=== PATIENT | male | born 1970 | race Two or more races ===

== ENCOUNTER 2017-09-07 23:55 | Emergency (ER) | payer SELFPAY ==
[~2017-09-07] VITALS: Ht 185.4 cm; Wt 88.5 kg
[2017-09-08 00:08] VITALS: BP 131/72
== END 2017-09-08 06:57 | disposition left against medical advice (07) ==
LOC: EDBD 23:55 → ER 23:55
DX: F41.9 Anxiety disorder, unspecified (principal); E11.9 Type 2 diabetes mellitus without complications; I10 Essential (primary) hypertension; F31.9 Bipolar disorder, unspecified; Z53.29 Procedure and treatment not carried out because of patient's decision for other reasons

== ENCOUNTER 2017-09-17 17:45 | Emergency (ER) | payer OTHER ==
[~2017-09-17] VITALS: Ht 185.4 cm; Wt 90.7 kg
[2017-09-17 18:07] VITALS: BP 120/78
[2017-09-17 18:34] LABS: Basophils # (auto) 0.1 uL; Basophils % (auto) 0.5 % (0.0-2.0); Eosinophils # (auto) 0.2 uL; Neutrophils % (auto) 63.8 % (37.0-80.0); Red Blood Cells 5.94 10^6/uL (4.5-5.90); White Blood Cell 11.2 10^3/uL (4.4-10.8)
[2017-09-17 18:35] LABS: Eosinophils % (auto) 1.7 % (0.0-7.0); Hematocrit 54.4 % (41.0-53.0); Hemoglobin 18.4 g/dL (13.5-17.5); Lymphocytes # (auto) 2.1 uL; Lymphocytes % (auto) 18.5 % (10.0-50.0); Mean Corpuscular Hgb Conc. 33.8 g/dL (32.0-36.0); Mean Corpuscular Volume 91.6 fL (80.0-100.0); Monocytes # (auto) 1.7 uL; Monocytes % (auto) 15.5 % (0.0-12.0); Neutrophils # (auto) 7.1 uL; Platelet Count (auto) 292 10^3/uL (140-450); Red Cell Distribution Width 13.5 % (11.8-14.3)
[2017-09-17 18:53] LABS: Albumin 3.6 g/dL (3.4-5.0); BUN/Creatinine Ratio 17.9; Bilirubin, Total 0.5 mg/dL (0.2-1.0); Calcium 7.9 mg/dL (8.5-10.1); Potassium 3.9 mmol/L (3.5-5.1); Total Protein 8.5 g/dL (6.4-8.2)
== END 2017-09-17 20:29 | disposition left against medical advice (07) ==
LOC: ER 17:51
DX: R10.9 Unspecified abdominal pain (principal); Z53.21 Procedure and treatment not carried out due to patient leaving prior to being seen by health care provider
CPT/HCPCS: 36415; 80053; 85025

== ENCOUNTER 2017-09-18 07:10 | Emergency (ER) | payer OTHER ==
[~2017-09-18] VITALS: Ht 185.4 cm; Wt 90.7 kg
[2017-09-18 07:39] VITALS: BP 129/88
[2017-09-18] MEDS ORDERED: DICYCLOMINE HCL 10 MG CAP PO ONE (07:45)
[2017-09-18] MEDS ORDERED: LOPERAMIDE HCL 2 MG CAP PO ONE (07:45)
[2017-09-19] MEDS ORDERED: ELVITAB2 OR (16:41)
== END 2017-09-18 08:08 | disposition home or self-care (01) ==
LOC: ER 07:10
DX: R19.7 Diarrhea, unspecified (principal); E11.9 Type 2 diabetes mellitus without complications; I10 Essential (primary) hypertension
CPT/HCPCS: 99283; J0500

== ENCOUNTER 2017-09-19 12:53 | Inpatient (IN) | payer OTHER ==
[~2017-09-19] VITALS: Ht 185.4 cm; Wt 95.4 kg
[2017-09-19] MEDS ORDERED: SODIUM CHLORIDE 0.9% 1,000 ML IV ONE (13:00)
[2017-09-19 13:28] LABS: Basophils # (auto) 0.1 uL; Eosinophils # (auto) 0.1 uL; Lymphocytes # (auto) 2.1 uL; Mean Corpuscular Hemoglobin 30.9 pg (28.0-32.0); Monocytes # (auto) 0.9 uL; Neutrophils # (auto) 5.2 uL
[2017-09-19 13:31] LABS: Basophils % (auto) 0.7 % (0.0-2.0); Eosinophils % (auto) 1.2 % (0.0-7.0); Hematocrit 53.6 % (41.0-53.0); Hemoglobin 18.2 g/dL (13.5-17.5); Lymphocytes % (auto) 24.6 % (10.0-50.0); Mean Corpuscular Hgb Conc. 34.1 g/dL (32.0-36.0); Mean Corpuscular Volume 90.6 fL (80.0-100.0); Monocytes % (auto) 11.1 % (0.0-12.0); Neutrophils % (auto) 62.4 % (37.0-80.0); Nucleated Red Blood Cells % 0.2 %; Platelet Count (auto) 292 10^3/uL (140-450); Red Blood Cells 5.91 10^6/uL (4.5-5.90); Red Cell Distribution Width 13.1 % (11.8-14.3); White Blood Cell 8.4 10^3/uL (4.4-10.8)
[2017-09-19 14:26] LABS: Anion Gap 7 (5-15); Blood Urea Nitrogen 11 mg/dL (7-18); Carbon Dioxide 23 mmol/L (21-32); Chloride 105 mmol/L (98-107); Glucose 136 mg/dL (74-106); Potassium 3.5 mmol/L (3.5-5.1); Sodium 135 mmol/L (136-145)
[2017-09-19 14:27] LABS: Alanine Aminotransferase 24 U/L (16-61); Albumin 3.1 g/dL (3.4-5.0); Alkaline Phosphatase 104 U/L (45-117); Aspartate Aminotransferase 10 U/L (15-37); BUN/Creatinine Ratio 12.8; Bilirubin, Total 0.3 mg/dL (0.2-1.0); Calcium 7.7 mg/dL (8.5-10.1); GFR African American 123 mL/min; GFR Non-African American 101 mL/min; Total Protein 7.6 g/dL (6.4-8.2)
[2017-09-19 14:28] LABS: Magnesium 2.5 mg/dL (1.6-2.6)
[2017-09-19] MEDS ORDERED: NITROGLYCERIN 0.4 MG SL TAB SL PRN (15:00)
[2017-09-19] MEDS ORDERED: DEXTROSE (50%) 50ML SYRG IV PRN (15:00)
[2017-09-19] MEDS ORDERED: MORPHINE SULF INJ 2 MG/ML SYRINGE 1ML IV PRN (15:00)
[2017-09-19] MEDS ORDERED: ACETAMINOPHEN 500 MG TAB PO PRN (15:00)
[2017-09-19] MEDS ORDERED: PROMETHAZINE HCL 25 MG/ML 1ML IV PRN (15:00)
[2017-09-19] MEDS ORDERED: HYDROcodone-ACET 5/325MG TAB PO PRN (15:00)
[2017-09-19 15:18] LABS: Amylase 37 U/L (25-115); Lipase 114 U/L (73-393)
[2017-09-19] MEDS: SODIUM CHLORIDE 0.9% 1,000 ML IV SCH (15:26)
[2017-09-19] MEDS: metroNIDAZOLE 500 MG TAB PO SCH ×2 (15:26→22:25)
[2017-09-19] MEDS ORDERED: ELVITAB2 OR (16:41)
[2017-09-19 17:00] VITALS: BP 128/78
[2017-09-19] MEDS: InsuLIN REG 1unit/0.01ml Soln (100units/ml) SC SCH ×2 (17:00→22:34)
[2017-09-19] MEDS: ACCU-CHEK COMFORT CURVE STRIP VI SCH ×2 (17:06→22:34)
[2017-09-19] MEDS: LORazepam 0.5 MG TAB PO PRN (21:07)
[2017-09-19 21:30] VITALS: BP 111/79
[2017-09-19] MEDS: MORPHINE SULFATE 4 MG/ML SYR/VIAL IV PRN (22:25)
[2017-09-19] MEDS: TEMAZEPAM 15 MG CAP PO PRN (22:25)
[2017-09-20] MEDS: SODIUM CHLORIDE 0.9% 1,000 ML IV SCH ×3 (00:54→20:57)
[2017-09-20] MEDS: LORazepam 0.5 MG TAB PO PRN ×2 (04:30→20:21)
[2017-09-20] MEDS: metroNIDAZOLE 500 MG TAB PO SCH ×2 (04:30→14:11)
[2017-09-20 05:08] VITALS: BP 105/68
[2017-09-20] MEDS: MORPHINE SULFATE 4 MG/ML SYR/VIAL IV PRN ×3 (05:20→20:21)
[2017-09-20 05:37] LABS: Basophils # (auto) 0.1 uL; Basophils % (auto) 0.7 % (0.0-2.0); Eosinophils # (auto) 0.2 uL; Eosinophils % (auto) 2.4 % (0.0-7.0); Hematocrit 50.2 % (41.0-53.0); Hemoglobin 16.8 g/dL (13.5-17.5); Lymphocytes # (auto) 2.7 uL; Lymphocytes % (auto) 36.8 % (10.0-50.0); Mean Corpuscular Hemoglobin 30.4 pg (28.0-32.0); Mean Corpuscular Hgb Conc. 33.5 g/dL (32.0-36.0); Mean Corpuscular Volume 90.8 fL (80.0-100.0); Monocytes # (auto) 0.9 uL; Monocytes % (auto) 12.3 % (0.0-12.0); Neutrophils # (auto) 3.6 uL; Neutrophils % (auto) 47.8 % (37.0-80.0); Platelet Count (auto) 276 10^3/uL (140-450); Red Blood Cells 5.53 10^6/uL (4.5-5.90); Red Cell Distribution Width 13.1 % (11.8-14.3); White Blood Cell 7.5 10^3/uL (4.4-10.8)
[2017-09-20] MEDS: ACCU-CHEK COMFORT CURVE STRIP VI SCH ×3 (06:43→17:00)
[2017-09-20] MEDS: InsuLIN REG 1unit/0.01ml Soln (100units/ml) SC SCH ×3 (06:43→17:00)
[2017-09-20 09:00] VITALS: BP 124/80
[2017-09-20] MEDS ORDERED: PANTOPRAZOLE 40 MG TAB PO SCH (10:00)
[2017-09-20 13:00] VITALS: BP 118/78
[2017-09-20 16:55] VITALS: BP 120/70
[2017-09-20 21:30] VITALS: BP 102/67
[2017-09-21] MEDS: ACCU-CHEK COMFORT CURVE STRIP VI SCH ×5 (00:33→22:53)
[2017-09-21] MEDS: metroNIDAZOLE 500 MG TAB PO SCH ×4 (00:35→22:52)
[2017-09-21] MEDS: PANTOPRAZOLE 40 MG TAB PO SCH ×3 (00:36→22:53)
[2017-09-21] MEDS: InsuLIN REG 1unit/0.01ml Soln (100units/ml) SC SCH ×5 (00:36→22:53)
[2017-09-21 05:00] VITALS: BP 122/72
[2017-09-21] MEDS: SODIUM CHLORIDE 0.9% 1,000 ML IV SCH ×2 (05:48→17:22)
[2017-09-21] MEDS: MORPHINE SULFATE 4 MG/ML SYR/VIAL IV PRN ×3 (05:49→18:56)
[2017-09-21 05:51] LABS: INR 1.05 (0.9-1.15); Partial Thromboplastin Time 28.6 sec (23.78-33.04); Prothrombin Time 11.2 sec (9.27-12.13)
[2017-09-21] MEDS: LORazepam 0.5 MG TAB PO PRN ×3 (05:56→18:56)
[2017-09-21 09:30] VITALS: BP 124/77
[2017-09-21 13:14] VITALS: BP 114/69
[2017-09-21 17:00] VITALS: BP 130/82
[2017-09-21 21:41] VITALS: BP 130/82
[2017-09-21] MEDS: TEMAZEPAM 15 MG CAP PO PRN (22:53)
[2017-09-22] MEDS: SODIUM CHLORIDE 0.9% 1,000 ML IV SCH (02:57)
[2017-09-22 04:36] VITALS: BP 109/72
[2017-09-22] MEDS: InsuLIN REG 1unit/0.01ml Soln (100units/ml) SC SCH ×2 (07:00→12:33)
[2017-09-22] MEDS: metroNIDAZOLE 500 MG TAB PO SCH (07:01)
[2017-09-22] MEDS: ACCU-CHEK COMFORT CURVE STRIP VI SCH ×2 (07:02→12:34)
[2017-09-22] MEDS ORDERED: diphenhdrAMINE HCL 50 MG/1 ML VL ONE (08:08)
[2017-09-22] MEDS ORDERED: SODIUM CHLORIDE LOCK 10 ML ONE (08:08)
[2017-09-22] MEDS ORDERED: LIDOCAINE VISCOUS 2% 15ML UD ONE (08:08)
[2017-09-22 09:00] VITALS: BP 128/88
[2017-09-22] MEDS: MIDAZOLAM HCL 5 MG/ML-1ML VIAL ONE ×2 (11:35→11:38)
[2017-09-22] MEDS: fentaNYL CITRATE 100 MCG/2 ML VL ONE ×2 (11:35→14:30)
[2017-09-22] MEDS: PANTOPRAZOLE 40 MG TAB PO SCH (12:33)
[2017-09-22] MEDS ORDERED: PANT40T PO (13:03)
[2017-09-22 15:21] VITALS: BP 118/77
== END 2017-09-22 16:15 | disposition home or self-care (01) | DRG 241 ==
LOC: ER 12:53 → EDBD 12:53 → EDUNIT# 12:53 → TELE-WESTW 12:54
PROVIDERS: ADMIT Internal Medicine; ATTEND Internal Medicine
PROC: 0DB68ZX Excision of Stomach, Via Natural or Artificial Opening Endoscopic, Diagnostic (ICD-10-PCS; principal; 2017-09-22 11:33)
DX: K29.70 Gastritis, unspecified, without bleeding (principal); E11.42 Type 2 diabetes mellitus with diabetic polyneuropathy; I10 Essential (primary) hypertension; E86.0 Dehydration; Z21 Asymptomatic human immunodeficiency virus [HIV] infection status; F32.9 Major depressive disorder, single episode, unspecified; F41.9 Anxiety disorder, unspecified; N20.0 Calculus of kidney; Z90.49 Acquired absence of other specified parts of digestive tract
CPT/HCPCS: 36415; 43239; 71045; 74176; 80053; 82150; 82962; 83036; 83690; 83735; 85025; 85610; 85730; 86360; 87045; 87177; 87493; 87899; 94761; 96360; A6257; J1815; J2250